=== PATIENT | male | born 1995 | race Caucasian/White ===

== ENCOUNTER 2017-10-18 05:08 | Emergency (ER) | payer SELFPAY ==
[2017-10-18 05:14] VITALS: BP 134/95
[2017-10-18] MEDS ORDERED: CEPHALEXIN 500 MG CAPSULE PO ONE (07:36)
[2017-10-18] MEDS ORDERED: LIDOCAINE 1% INJ-PF (10 MG/ML) 30 ML SDV INJ ONE (07:36)
[2017-10-18] MEDS ORDERED: IBUPROFEN 800 MG TABLET PO ONE (07:36)
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
== END 2017-10-18 09:25 | disposition home or self-care (01) ==
LOC: ER 05:08
PROC: 0HQ1XZZ Repair Face Skin, External Approach (ICD-10-PCS; principal; 2017-10-18)
DX: S01.511A Laceration without foreign body of lip, initial encounter (principal); Y04.0XXA Assault by unarmed brawl or fight, initial encounter
CPT/HCPCS: 99282; 12013; J3490